=== PATIENT | female | born 1990 | race Caucasian/White ===

== ENCOUNTER 2016-09-21 09:25 | Emergency (ER) | payer MEDICAID ==
--- NOTE | 2016-09-22 11:08 | ER ---
ADMIT: 09/21/2016 RM/LOC: ER [facility] MR#: [id number] [address] [facility] [address] [place] [id number] PANTERA ALVAREZ [address] [place] [id number] Emergency Room Report SEX: F AGE: 26 : 1990 DATE: 09/21/2016 ADDENDUM: A 26-year-old female coming in with right groin pain. She had fallen four days ago. She has a hard time bearing weight on it. Initial x-ray was negative. CT scan did not show anything at this time. She has significant psychiatric depression disease, but otherwise negative. I put her on prednisone 20 b.i.d. x5 days, [place]comb 5/325 #20 one to two p.o. q.6 p.r.n. pain. I Barrett wrapped it. She is to ice, rest, and then follow up as needed. CONDITION ON DISCHARGE: Good. Michael Hernandez MD/ jamaal JOB #: [id number] CC: Michael Hernandez MD, Attending Physician
== END 2016-09-21 13:05 | disposition home or self-care (01) ==
LOC: ER 09:25
DX: S39.011A Strain of muscle, fascia and tendon of abdomen, initial encounter (principal); F32.9 Major depressive disorder, single episode, unspecified; F17.210 Nicotine dependence, cigarettes, uncomplicated; X58.XXXA Exposure to other specified factors, initial encounter